=== PATIENT | male | born 1965 | race Caucasian/White ===

== ENCOUNTER 2021-06-30 18:25 | Emergency (ER) | payer BC, SELFPAY ==
[2021-06-30 18:32] VITALS: BP 148/79; PULSE 65; RESP 16; TEMP 36.8; O2SAT 99
--- NOTE | 2021-06-30 18:56 | ED.URI ---
HPI - URI/Sore Throat General Chief Complaint: Upper Respiratory Infection Stated Complaint: ear and throat pain Time Seen by Provider: 06/30/21 18:56 Source: patient Mode of arrival: ambulatory Limitations: no limitations History of Present Illness HPI Narrative: Ezequiel Olson is a 55 yo male with a PMH of HTN, diabetes, who comes to [facility] with complaints of right ear pain and sore throat x3 days Patient has had Covid vaccine Related Data Home Medications Medication Instructions Recorded Confirmed amlodipine 10 mg PO DAILY 06/30/21 06/30/21 carvedilol 25 mg PO BID 06/30/21 06/30/21 losartan 100 mg PO DAILY 06/30/21 06/30/21 metformin 500 mg PO BID 06/30/21 06/30/21 sildenafil 100 mg PO DAILY 06/30/21 06/30/21 Allergies Allergy/AdvReac Type Severity Reaction Status Date / Time Penicillins Allergy Unknown Rash Verified 06/30/21 18:29 Review of Systems Review of Systems: CONSTITUTIONAL: Denies fever, chills, sweats. EYES: Denies visual changes, redness, discharge. ENT: Denies rhinorrhea, congestion, has sore throat, right otalgia. CARDIOVASCULAR: Denies chest pain, palpitations, edema. RESPIRATORY: Denies dyspnea, wheezing, cough GASTROINTESTINAL: Denies abdominal pain, nausea, vomiting, diarrhea. GENITOURINARY: Denies dysuria, hematuria, abnormal discharge SKIN: Denies rash or itching. NEUROLOGIC: Denies numbness, or focal weakness. PSYCHIATRIC: Denies anxiety or depression. [facility] Past Medical History Medical History Diabetes HTN (hypertension) Hyperlipidemia Surgical History Surgical History (Updated 06/30/21 @ 18:59 by Anali Marcelo CNP) Previous back surgery Social History Social History (Updated 06/30/21 @ 18:59 by Anali Marcelo CNP) Smoking status: Never smoker Alcohol intake: current Comments At time of signature, I agree with nursing past medical, surgical, social and family history. There is no relevant family history pertinent to the presenting complaint. Exam Narrative: GENERAL: This is a well-nourished, well-developed patient, in mild distress. HEAD: normocephalic, atraumatic. EYES: PERRL. Sclera clear/white. Vision is grossly intact. EARS: External ears normal, auditory canals erythema and without drainage, with fluid behind TMs- no perforation. Hearing grossly intact. NOSE: External nose normal without nasal discharge, nares without redness, no rhinorrhea. THROAT: Mucous membranes moist, posterior pharynx erythematous NECK: Neck supple, right large lymph node, tender to touch CARDIOVASCULAR: Regular rate and rhythm without murmurs, gallops, or rubs. RESPIRATORY: Clear to auscultation. Breath sounds equal bilaterally. No wheezes, rales, or rhonchi. GASTROINTESTINAL: Abdomen soft, non-tender, SKIN: warm, intact with no suspicious lesions or rash, good texture and turgor. NEURO: awake, alert, and oriented to person, place and time. There were no obvious focal neurologic abnormalities. Steady gait EXTREMITIES: Normal range of motion. BACK: Nontender without deformity Course Course Emergency Course: Patient comes with cough and sore throat, right-sided lymph node enlargement Patient started on doxycycline 100 mg twice daily x7 days, Medrol Dosepak, Tessalon Perles Vital Signs Vital signs: Vital Signs Temperature 98.2 F 06/30/21 18:32 Pulse Rate 65 06/30/21 18:32 Respiratory Rate 16 06/30/21 18:32 Blood Pressure 148/79 H 06/30/21 18:32 Pulse Oximetry 99 06/30/21 18:32 Temperature 98.2 F 06/30/21 19:06 Pulse Rate 65 06/30/21 19:06 Respiratory Rate 16 06/30/21 19:06 Blood Pressure 148/79 H 06/30/21 19:06 Pulse Oximetry 99 06/30/21 19:06 MDM - URI/Sore Throat Differential Diagnosis Differential diagnosis: Likely upper respiratory infection, sinusitis, bronchitis, pharyngitis and other (Adenitis) Lab Data Labs: Strep Screen Presumptive Negative
[2021-06-30 19:06] VITALS: BP 148/79; PULSE 65; RESP 16; TEMP 36.8; O2SAT 99
== END 2021-06-30 19:17 | disposition home or self-care (01) ==
PROVIDERS: Emergency Provider Nurse Practitioner; PCP Family Medicine
DX: L04.9 Acute lymphadenitis, unspecified (principal); J02.9 Acute pharyngitis, unspecified; E11.9 Type 2 diabetes mellitus without complications; I10 Essential (primary) hypertension; E78.5 Hyperlipidemia, unspecified
CPT/HCPCS: 87081; 87880; 99203; G0463

== ENCOUNTER 2022-04-20 15:38 | Emergency (ER) | payer OTHER, SELFPAY ==
--- NOTE | ~2022-04-20 | CT_ITS ---
EXAMINATION: CT abdomen pelvis w con DATE: 04/20/2022 17:05 INDICATION: Low abdominal pain for 2 days after unloading intracranial TECHNIQUE: Computed tomography (CT) of the abdomen and pelvis was performed with 100 CC Omnipaque 300 intravenous contrast. Automated exposure control and iterative reconstruction technique were employe d. Exam dose: 985.87 mGy-cm total exam DLP. COMPARISON: 07/08/2013 limited abdominal ultrasound examination FINDINGS: Calcified granuloma, left lower lobe. No infiltrate or consolidation at the included lower lung zones. Heart size is within normal range. No pericardial or pleural effusion. There are numerous small stones in the dependent aspect of the gallbladder lumen. No gallbladder wall thickening or pericholecystic fluid or fat stranding. No bile duct or pancreatic duct dilatation. No common bile duct stone is identified. Surface nodularity of liver. Hepatic steatosis. No hepatic space-occupying mass lesion is detected. Malka newman spleen measures almost 14 cm length. Normal morphology of the adrenal glands. Approximately 3.2 x 5.7 mm nonobstructing upper pole right renal calculus. 9 x 11 mm lower pole right renal calculus with attenuation of 1037 Hounsfield units. Additional 3 mm nonobstructing lower pole right renal calculus. There is scarring and considerable asymmetric atrophy of the left kidney. 7 x 10.3 mm nonobstructing upper pole left renal calculus with attenuation of 1043 Hounsfield units. 4 mm nonobstructing lower pole left renal calculus. No ureteral calculus or hydroureteronephrosis on either side. Moderate prostate enlargement and occasional prostate calcification. Moderate diffuse thickening of malka newman urinary bladder wall, likely due to bladder outlet obstruction. Bilateral fat-containing inguinal hernias, small on the left, small to moderate on the right. Normal appendix. No bowel obstruction, bowel wall thickening, pneumatosis or intraperitoneal free air . Up to 3.8 cm wide 3.5 cm deep and 4.2 cm vertical dimension fat-containing umbilical hernia. Degenerative changes of the thoracic and lumbar spine including severe degenerative disc disease and mild retrolisthesis at L5-S1. No suspicious osteolytic or osteoblastic lesions are noted. IMPRESSION: 3.8 x 3.5 x 4.2 cm fat-containing umbilical hernia Bilateral fat-containing relatively small inguinal hernias Cholelithiasis Surface nodularity of the liver, hepatic steatosis splenomegaly, suggesting cirrhosis Bilateral nonobstructive nephrolithiasis Scarring and atrophy of the left kidney Moderate prostate enlargement Reviewed, dictated and finalized at [facility]. Reviewed, dictated and finalized at [facility]. IMPRESSION: 3.8 x 3.5 x 4.2 cm fat-containing umbilical hernia Bilateral fat-containing relatively small inguinal hernias Cholelithiasis Surface nodularity of the liver, hepatic steatosis splenomegaly, suggesting cir rhosis Bilateral nonobstructive nephrolithiasis Scarring and atrophy of the left kidney Moderate prostate enlargement
[2022-04-20 15:43] VITALS: BP 147/81; PULSE 101; RESP 16; TEMP 36.7; O2SAT 98
--- NOTE | 2022-04-20 15:49 | ED.ABDPAIN ---
HPI - Abdominal Pain General Chief Complaint: Abdominal Pain Stated Complaint: LOWER ABD PAIN X2D Time Seen by Provider: 04/20/22 15:46 History of Present Illness HPI narrative: The patient is a 56-year-old male with history of hypertension presenting to the emergency department for evaluation of umbilical abdominal pain. Patient states that he was helping to load a heavy trailer over the weekend when he was pulling on the hitch and had an acute onset of pain in his abdomen. Patient noticed today that he had bulging at his umbilicus, thus prompting a visit to an urgent care where the patient was sent here for evaluation of an umbilical hernia. Patient denies fever, chills, nausea or vomiting. He denies history of abdominal surgery. He denies constipation or diarrhea. Patient reports pain is mild, aching in nature at the umbilicus and in the lower abdomen. He denies significant abdominal distention. Related Data Home Medications Medication Instructions Recorded Confirmed amlodipine 10 mg tablet 10 mg PO DAILY 06/30/21 06/30/21 carvedilol 25 mg tablet 25 mg PO BID 06/30/21 06/30/21 losartan 100 mg tablet 100 mg PO DAILY 06/30/21 06/30/21 metformin 500 mg tablet 500 mg PO BID 06/30/21 06/30/21 sildenafil 100 mg tablet 100 mg PO DAILY 06/30/21 06/30/21 Allergies Allergy/AdvReac Type Severity Reaction Status Date / Time Penicillins Allergy Unknown Rash Verified 04/20/22 15:49 Review of Systems Review of Systems: CONSTITUTIONAL: Denies fever, chills, or sweats. CARDIOVASCULAR: Denies chest pain, palpitations, or edema. RESPIRATORY: Denies cough or dyspnea. GASTROINTESTINAL: Reports periumbilical abdominal pain, denies nausea, vomiting or diarrhea, denies constipation GENITOURINARY: Denies dysuria or hematuria. SKIN: Denies rash or itching. MUSCULOSKELETAL: Denies back pain, joint pain, or myalgia. NEUROLOGIC: Denies headache, numbness, or weakness. [facility] Past Medical History Medical History Diabetes HTN (hypertension) Hyperlipidemia Surgical History Surgical History Previous back surgery Social History Social History Smoking status: Never smoker Alcohol intake: current Exam Narrative: GENERAL: Awake, alert, conversant HEAD: Normocephalic, atraumatic. EYES: PERRLA and EOMI. ENT: Nares clear, no rhinorrhea or epistaxis. Mucous membranes moist. NECK: Supple. CHEST: No respiratory distress, breathing even and non labored HEART: Regular rate, sinus rhythm ABDOMEN: Protuberance, patient with umbilical hernia, nontender, no significant induration or ecchymosis, overlying tissue is soft when palpated no significant tenderness on exam EXTREMITIES: Normal range of motion. No edema. SKIN: Warm, dry, no rash. NEURO:No focal deficits. Alert and oriented x3 Course Vital Signs Vital signs: Vital Signs Temperature 36.7 C 04/20/22 15:43 Pulse Rate 101 H 04/20/22 15:43 Respiratory Rate 16 04/20/22 15:43 Blood Pressure 147/81 H 04/20/22 15:43 Pulse Oximetry 98 04/20/22 15:43 Oxygen Delivery Room Air 04/20/22 15:43 Temperature 36.7 C 04/20/22 15:43 Pulse Rate 101 H 04/20/22 15:43 Respiratory Rate 16 04/20/22 15:43 Blood Pressure 147/81 H 04/20/22 15:43 Pulse Oximetry 98 04/20/22 15:43 Oxygen Delivery Room Air 04/20/22 15:43 MDM - Abdominal Pain MDM Narrative Medical decision making narrative: Patient presenting for evaluation of umbilical hernia after heavy lifting, starting to stop a trailer from moving. At the time of assessment, ABCs are intact and vital signs are stable. Patient does not have any evidence of incarceration or strangulation based on physical exam, no real significant tenderness on exam. There is an umbilical hernia that is able to be reduced easily when the patient is lying flat. Patient hair
[2022-04-20 16:18] LABS: Basophils Percent Auto 0.4 % (0.2-1.2); Eosinophils Absolute Auto 0.3 K/mm3 (0-0.3); Hematocrit 42.8 % (42.0-52.0); Hemoglobin 14.8 g/dL (14.0-18.0); Immature Granulocyte Absolute 0.02 K/mm3 (0.00-0.031); Immature Granulocyte Percent A 0.3 % (0-0.5); Lymphocytes Absolute Auto 2.05 K/mm3 (0.9-3.2); Lymphocytes Percent Auto 29.1 % (18.3-44.2); Mean Corpuscular HGB Conc 34.6 g/dl (32-36); Mean Corpuscular Hemoglobin 31.5 pg (26-34); Mean Corpuscular Volume 91.1 fl (80-100); Mean Platelet Volume 9.6 fl (7.4-10.4); Monocytes Absolute Auto 0.5 K/mm3 (0.1-0.6); Monocytes Percent Auto 7.5 % (2.6-8.5); Neutrophils Absolute Auto 4.1 K/mm3 (1.3-6.7); Neutrophils Percent Auto 58.7 % (45.5-73.1); Platelet Count Result 187 k/mm3 (150-375); Red Cell Distribution Width 12.4 % (11.5-14.5); White Blood Count 7.1 K/mm3 (4.5-10.0)
[2022-04-20 16:27] LABS: Alanine Aminotransferase 35 U/L (6-50); Albumin Level 4.2 g/dL (3.5-5.1); Alkaline Phosphatase 146 U/L (38-126); Anion Gap 7 mmol/L (8-16); Aspartate Amino Transferase 42 U/L (17-59); Bilirubin,Total 0.5 mg/dL (0.2-1.3); Blood Urea Nitrogen 9 mg/dL (9-20); Calcium 9.3 mg/dL (8.4-10.2); Carbon Dioxide 27 mmol/L (22-30); Chloride 102 mmol/L (98-107); Estimated CRCL calculation 129 ml/min; Estimated Glomerular Filt Rate > 60; Glucose 319 mg/dL (65-110); Lactic Acid Reflex 1.3 mmol/L (0.7-2.0); Lipase 363 U/L (23-300); Potassium 4.1 mmol/L (3.4-5.0); Sodium 136 mmol/L (137-145)
[2022-04-20 16:58] LABS: Appearance Urine Clear (Clear); Bilirubin Urine Negative (Negative); Color Urine Yellow (Yellow); Glucose Urine UA 3+ mg/dL (Negative); Ketones Urine Negative (Negative); Leukocyte Esterase Ur Negative LEU/UL (Negative); Nitrate Urine Negative (Negative); Protein Urine Negative (Negative); Specific Grav Ur 1.015 (1.001-1.035); Urobilinogen Urine 0.2 mg/dL (<2.0); pH Urine 5.5 (5.0-9.0)
[2022-04-20 17:02] LABS: Bacteria Urine Trace /hpf; Mucus Urine Rare /lpf; RBC Urine 0-2 /hpf (0-2); WBC Urine 0-3 /hpf
[2022-04-20 17:03] LABS: Add Urine Microscopic? YES; Blood Urine Trace-Intact (Negative)
== END 2022-04-20 18:43 | disposition home or self-care (01) ==
PROVIDERS: Emergency Provider Emergency Medicine; PCP Family Medicine
DX: K42.9 Umbilical hernia without obstruction or gangrene (principal); E11.9 Type 2 diabetes mellitus without complications; Z79.84 Long term (current) use of oral hypoglycemic drugs; I10 Essential (primary) hypertension; E78.5 Hyperlipidemia, unspecified
CPT/HCPCS: 36415; 74177; 80053; 81001; 83605; 83690; 85025; 99284; Q9967

== ENCOUNTER 2022-05-27 08:02 | Outpatient (CLI) | payer OTHER, SELFPAY ==
[2022-05-27 08:52] LABS: Basophils Percent Auto 0.5 % (0.2-1.2); Eosinophils Absolute Auto 0.2 K/mm3 (0-0.3); Eosinophils Percent Auto 3.9 % (0-4.4); Hematocrit 42.4 % (42.0-52.0); Hemoglobin 14.3 g/dL (14.0-18.0); Immature Granulocyte Absolute 0.02 K/mm3 (0.00-0.031); Immature Granulocyte Percent A 0.3 % (0-0.5); Lymphocytes Absolute Auto 1.76 K/mm3 (0.9-3.2); Lymphocytes Percent Auto 29.5 % (18.3-44.2); Mean Corpuscular HGB Conc 33.7 g/dl (32-36); Mean Corpuscular Hemoglobin 31.3 pg (26-34); Mean Corpuscular Volume 92.8 fl (80-100); Mean Platelet Volume 9.5 fl (7.4-10.4); Monocytes Absolute Auto 0.6 K/mm3 (0.1-0.6); Monocytes Percent Auto 9.2 % (2.6-8.5); Neutrophils Absolute Auto 3.4 K/mm3 (1.3-6.7); Neutrophils Percent Auto 56.6 % (45.5-73.1); Platelet Count Result 160 k/mm3 (150-375); Red Blood Count 4.57 M/mm3 (4.6-6.20); Red Cell Distribution Width 12.5 % (11.5-14.5)
[2022-05-27 09:00] LABS: Anion Gap 10 mmol/L (8-16); Blood Urea Nitrogen 11 mg/dL (9-20); Calcium 9.1 mg/dL (8.4-10.2); Carbon Dioxide 27 mmol/L (22-30); Chloride 103 mmol/L (98-107); Estimated Glomerular Filt Rate > 60; Glucose 165 mg/dL (65-110); Potassium 3.9 mmol/L (3.4-5.0); Sodium 140 mmol/L (137-145)
== END 2022-05-27 08:03 | disposition home or self-care (01) ==
LOC: ANHSURGERY 08:08
PROVIDERS: PCP Family Medicine; Visit Provider Surgery
DX: K43.9 Ventral hernia without obstruction or gangrene (principal)
CPT/HCPCS: 36415; 80048; 85025

== ENCOUNTER 2022-06-01 01:48 | Day surgery (SDC) | payer OTHER, SELFPAY ==
--- NOTE | 2022-05-24 15:44 | PC.NURSE ---
Report to the Outpatient Waiting Room, entrance under the green pavilion located off [facility], at time 1030 on date _06/01/22___. OR Time: 1230. - You and your visitor will be asked to self-screen and do not enter if you have any COVID symptoms. - Only one visitor and NO children visitors are allowed at this time. - The patient visitor is requested to leave or wait in car when not with patient due to restrictions. - A mask is required within the hospital. Patients may have clear liquids (water, carbonated beverages, clear teas, apple juice) until 3 hours prior to surgery with a maximum of 20 ounces. - No food from midnight until time of surgery BEFORE 0930 - Infants may have breast milk until 4 hours before surgery, formula 6 hours prior to surgery. - Children will be allowed to drink immediately following surgery. If applicable, please bring a bottle or sippy cup to assist with drinking. Juice, water, soda, and popsicles are readily available. For infants on formula, please bring formula the day of surgery. Pacifiers are allowed. Take the following medications with a SIP of water the morning of surgery: ____AMLODIPINE AND CARVEDILOL Medications to discontinue per physician Date to take last dose Please no make-up, nail icelandic, hairspray, perfume, deodorant, or body powder the day of surgery. No jewelry (including any body piercings) or valuables the day of surgery, leave them at home. Please take a shower or bath the night before, or the morning of, surgery with an antibacterial soap. Wear comfortable, loose fitting clothing. Children are encouraged to wear pajamas. USE HIBICLENS DIRECTED ON THE MORNING OF SURGERY - Jewelry must be removed prior to entering the operating room. Rings and piercings that are not removed may be cut off. - The hospital will not accept responsibility for valuables. - Please leave all valuables, including medications, at home the day of surgery. If you are going home after surgery, a licensed line haul truck driver must drive you home. - NO public transportation without another adult. - We recommend that an adult stay with you for 24 hours following discharge. - We also recommend that you do not drive, make important decision, drink alcoholic beverages, or take any drugs that were not prescribed by your health care provider for at least 24 hours after your discharge time. For Pediatric surgeries, we recommend two adults accompany the child home (only one inside the building at this time). Follow any additional instructions given to you from your surgeon. If you or anyone in your household have experienced Covid symptoms in the past week, please notify your surgeon or the nurse liaison at the phone number below for possible testing. Telephone instructions given to _PATIENT__and asked if any additional questions and then verbalized understanding. Patient advised to call surgeon office or pre surgery nurse liaison [phone] if any additional questions.
[2022-05-25 16:10] VITALS: BMI 30.4
--- NOTE | 2022-06-01 08:44 | WPDHPUPDATE1 ---
History and Physical Update Update Date/Time: 06/01/22 08:44 History and Physical has been reviewed, including an updated exam of the patient. There are NO changes in the patient's condition. Risks, benefits, and alternatives have been discussed and questions answered. Patient agrees to proceed with procedure.
[2022-06-01 09:32] VITALS: BMI 30.8
[2022-06-01 09:35] VITALS: BP 134/81; PULSE 63; RESP 16; TEMP 36.7; O2SAT 98
--- NOTE | 2022-06-01 10:05 | SUR.PREOP ---
1005- COVID card not brought into hospital today but patient confirms he has received vaccinations.
[2022-06-01 10:12] LABS: Glucose Point of Care 157 mg/dl (65-105)
--- NOTE | 2022-06-01 10:51 | WPDANESEPPF ---
Anes - Initial Pre Proc Eval Procedure: Operation Date: 06/01/22 11:30 Proposed Procedures p Repair Periumbilical Ventral Hernia with Mesh - Bolivar Gardner MD Date/Time: 06/01/22 10:51 Surgeon: Bolivar Gardner MD Pre Op Diagnosis: ventral hernia Patient Data Age: 56 Gender: M Height: 1.83 m Weight: 101.8 kg Allergies Allergy/AdvReac Type Severity Reaction Status Date / Time Penicillins Allergy Unknown Unknown Verified 06/01/22 10:04 Home Medications Medication Instructions Recorded Confirmed Type amlodipine 10 mg tablet 10 mg PO DAILY 06/30/21 06/01/22 History carvedilol 25 mg tablet 25 mg PO BID 06/30/21 06/01/22 History losartan 100 mg tablet 100 mg PO DAILY 06/30/21 06/01/22 History metformin 500 mg tablet 500 mg PO BID 06/30/21 06/01/22 History ibuprofen 400 mg tablet 400 mg PO TID PRN fever or pain 10 04/20/22 05/24/22 Rx days #30 tabs cetirizine 10 mg tablet (Zyrtec) 10 mg PO DAILY 04/26/22 06/01/22 History Laboratory Tests 06/01/22 10:09 POC Capillary Glucose 157 mg/dl H mg/dl (65-105) Patient hx anesthesia problems: none Family hx anesthesia problems: none Results Review: All pre-operative results and documents have been reviewed as part of the pre-operative evaluation. [facility] Past Medical History Medical History (Updated 05/02/22 @ 10:19 by Angeline Delatorre) Diabetes HTN (hypertension) Hyperlipidemia Surgical History Surgical History History of neck surgery Previous back surgery Family History Family History Father Heart attack Hypertension Grandparent Heart attack Hypertension Social History Social History Social History: daily caffeine use, 3-4 sodas per day Smoking status: Never smoker Alcohol intake: current Alcohol use details: whiskey, beer Substance use: unknown Living arrangements: with family Additional living arrangements comments: patient is 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 Gender identity (if verbalized by the patient): Male Sexual Orientation (if Verbalized by the Patient): Straight or Heterosexual Anes - Eval Final PreProcedure Day of Procedure 06/01/22 10:51 Patient weight: obese Heart: regular rate and rhythm Lungs: clear to auscultation Airway: Mallampati scale class III Neurological: alert and oriented Last oral intake: >/= 8 hours ASA classification: III Emergent: no Anesthetic plan: proceed Anesthesia type and monitoring: general GIVS and standard monitoring Results Review: All pre-operative results and documents have been reviewed as part of the pre-operative evaluation. Informed Consent: The patient's anesthetic plan and its attendant risks and benefits were discussed with the patient/family/POA. Questions were solicited and answers provided to the satisfaction of the patient/family/POA.
[2022-06-01] MEDS: LACTATED RINGERS 1,000 ML 30 ML IV CONT ×2 (10:55→12:37)
[2022-06-01] MEDS: KETOROLAC 15 MG/ML VIAL (*BKC) IV PUSH (10:56)
[2022-06-01] MEDS: ACETAMINOPHEN 500 MG TABLET 1000 MG PO (10:56)
[2022-06-01] MEDS: ceFAZolin 2 GM/D5W 50 ML 2 GM/50 ML BAG IVPB (11:36)
[2022-06-01] MEDS: BUPIVACAINE/EPINEPHRINE 0.25% 50 ML VIAL 20 ML INFILTRATE (11:55)
[2022-06-01 12:37] VITALS: BP 127/82; PULSE 67; RESP 12; O2SAT 95
--- NOTE | 2022-06-01 12:49 | W.PM.PROC2 ---
Procedure Note - Detailed Date of Procedure 06/01/22 Pre-op Diagnosis ventral hernia Post-op Diagnosis Same Procedure Performed Repair ventral and umbilical hernia with 6.[address] underlay mesh Surgeon Bolivar Gardner MD Clip Loading Machine Feeder Janell SAENZ Anesthesia General (G IV S) and Local (0.25% bupivacaine with epinephrine) Indications Patient is a 56-year-old man who while unloading a trailer had a serious abdominal strain which resulted in a bulge just above his umbilicus and including the umbilicus. He was seen in the office and found to have a supra umbilical ventral hernia. He is taken to surgery now for repair with mesh. Findings Patient had a supraumbilical ventral hernia which was close to the umbilicus and actually a small umbilical hernia was present as well. The resultant defect was about 2 cm when the 2 hernias were joined. A 6.[address] underlay mesh was used to bolster the repair. Description of Procedure Patient was taken to surgery and anesthesia was introduced. I tried to reduce the hernia but was unable to completely reduce it. The proposed incision was marked around the upper aspect of the umbilicus. Local was infiltrated in the area of the anticipated incision. Incision was made and dissection through the skin and superficial subcutaneous was carried out. We then encountered the large hernia. The lower most aspect of the hernia included the umbilical skin. I dissected the hernia free of the subcutaneous and the umbilical skin. I dissected down to the fascia. I then infiltrated additional local into the neck of the hernia defect as well as the fascia. I used the cautery to divide the hernia sac at the fascia. When the sac was completely divided it was excised. There was a small additional hernia just caudal to this 1 that included the umbilicus. This hernia sac was excised as well. I divided the small fascial bridge between the 2 defects making 1 defect that was proximally 2 cm. I then reduced most of the chronically incarcerated omentum at the hernia. Some of the omentum I divided with the cautery and discarded. I was then able to place a finger in the abdominal cavity. I could not find any other hernia defects in the area. I chose a 6.[address] mesh. The mesh was placed in the defect and centered appropriately. Cranial and caudal transfascial sutures were then placed in such a fashion that, when tied, they would advance the edges of the defect towards 1 another, reducing the tension on the repair. 0 Ethibond sutures were used. Tying the sutures had the desired effect. I then cut the straps that were attached to the Ventralex ST mesh. Right and left lateral transfascial sutures of 0 Ethibond were then placed as well. Finally the defect was closed with [id number] mattress suture of 0 Ethibond. This stitch also incorporated a bit of mesh. The repair looked quite good. There was little or no tension on the repair. I infiltrated additional local around the outer aspect of the fascia where the repair had been performed. The 3-0 Vicryl was then used to suture the umbilical skin back to the fascia. Some additional 3-0 Vicryl subcutaneous sutures were placed. Some subcuticular 3-0 Vicryl and 4-0 Vicryl interrupted sutures were placed to approximate the skin. The skin was finally closed with a running 4-0 Monocryl skin suture. Wound was dressed with Exofin surgical adhesive. The patient was awakened and taken to recovery in good condition. Sponge and needle counts were correct x2. Implants 6.[address] mesh Estimated Blood Loss -5.0 Drains No Packing No Pathology None sent Complications No immediate complications Condition Stable Disposition Same day [facility] Billing Surgery - Charge Forward: Surgery Billing (Ventral hernia repair with mesh)
[2022-06-01 13:01] LABS: Glucose Point of Care 145 mg/dl (65-105)
[2022-06-01 13:05] VITALS: BP 141/86; PULSE 65; RESP 12; O2SAT 95
[2022-06-01 13:35] VITALS: BP 144/78; PULSE 71; RESP 12
== END 2022-06-01 13:44 | disposition home or self-care (01) ==
PROVIDERS: PCP Family Medicine; Visit Provider Surgery
PROC: (CPT 49560; principal; 2022-06-01 11:30)
DX: K43.9 Ventral hernia without obstruction or gangrene (principal); K42.9 Umbilical hernia without obstruction or gangrene; I10 Essential (primary) hypertension; E78.5 Hyperlipidemia, unspecified; E11.9 Type 2 diabetes mellitus without complications; Z79.84 Long term (current) use of oral hypoglycemic drugs; E66.9 Obesity, unspecified; Z68.30 Body mass index [BMI] 30.0-30.9, adult
CPT/HCPCS: 49560; 49568; 82948; A9270; C1781; J0690; J1100; J1170; J1885; J2250; J2405; J2704; J3010; J7120

== ENCOUNTER 2022-09-06 10:38 | Emergency (ER) | payer BC, SELFPAY ==
--- NOTE | 2022-09-06 10:45 | ED.URI ---
HPI - URI/Sore Throat General Chief Complaint: Upper Respiratory Infection Stated Complaint: cough, sore throat, headache, dizzy Time Seen by Provider: 09/06/22 10:45 Source: patient and RN notes reviewed History of Present Illness HPI Narrative: Patient is a 56-year-old male who presents to the Urgent Care with complaints of cough, sore throat, headache and fever. Patient states that started approximately 3-4 days ago and he has been using Tylenol. Patient had COVID a week and half ago. Denies any nausea or vomiting. No other acute complaints. No acute distress noted. Patient aware of the plan of care. . Some parts of this dictation were generated by voice recognition software and may contain typographical and/or grammatical inaccuracies. Related Data Home Medications Medication Instructions Recorded Confirmed amlodipine 10 mg tablet 10 mg PO DAILY 06/30/21 09/06/22 carvedilol 25 mg tablet 25 mg PO BID 06/30/21 09/06/22 losartan 100 mg tablet 100 mg PO DAILY 06/30/21 09/06/22 metformin 500 mg tablet 500 mg PO BID 06/30/21 09/06/22 cetirizine 10 mg tablet (Zyrtec) 10 mg PO DAILY 04/26/22 09/06/22 Allergies Allergy/AdvReac Type Severity Reaction Status Date / Time Penicillins Allergy Unknown Unknown Verified 07/07/22 09:51 Review of Systems Review of Systems: CONSTITUTIONAL: Reports of fever EYES: Denies visual changes, redness, or discharge. ENT: Reports of congestion, sore throat CARDIOVASCULAR: Denies chest pain, palpitations, or edema. RESPIRATORY: Reports of cough with chest tightness GASTROINTESTINAL: Denies abdominal pain, nausea, vomiting, or diarrhea. GENITOURINARY: Denies dysuria or hematuria. SKIN: Denies rash or itching. MUSCULOSKELETAL: Denies back pain, joint pain, or myalgia. NEUROLOGIC: Reports of headache All other systems reviewed are negative, except as documented in HPI. [facility] Past Medical History Medical History Diabetes HTN (hypertension) Hyperlipidemia Surgical History Surgical History History of neck surgery Previous back surgery S/P hernia repair Periumbilical hernia repair w/ mesh on 06/01/22. 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 There is no relevant family history pertinent to the patient complaint. Exam Narrative: GENERAL: This is a well-nourished, well-developed patient, in no apparent distress. HEAD: normocephalic, atraumatic. EYES: PERRL. Sclera clear/white. Vision is grossly intact. EARS: External ears normal, auditory canals clear and without drainage, TMs normal without perforation. Hearing grossly intact. NOSE: External nose normal with no obvious nasal discharge. Bilateral erythema nares with clear to yellow rhinorrhea THROAT: Mucous membranes moist, mild bilateral tonsillar edema with bilateral exudate and moderate postnasal drainage. NECK: Neck supple, non-tender without lymphadenopathy CARDIOVASCULAR: Regular rate and rhythm without murmurs, gallops, or rubs. RESPIRATORY: Audible wheezing with wet cough noted on exam. Lung sounds Clear to auscultation. Breath sounds equal bilaterally. No wheez
[2022-09-06 10:46] VITALS: BP 153/92; PULSE 82; RESP 23; TEMP 38.2; O2SAT 100
[2022-09-06] MEDS: IPRATROPIUM BR 0.02% INH SOLN 0.5 MG/2.5 ML VIAL INHALATION (10:55)
[2022-09-06] MEDS: ALBUTEROL SULFATE NEB 2.5 MG/3 ML INH INHALATION (10:55)
== END 2022-09-06 11:18 | disposition home or self-care (01) ==
PROVIDERS: Emergency Provider Nurse Practitioner Family; PCP Family Medicine
DX: J40 Bronchitis, not specified as acute or chronic (principal); E11.9 Type 2 diabetes mellitus without complications; I10 Essential (primary) hypertension; E78.5 Hyperlipidemia, unspecified; Z86.16 Personal history of COVID-19
CPT/HCPCS: 94640; 99213; G0463

== ENCOUNTER 2024-12-07 07:39 | Outpatient (CLI) | payer OTHER, SELFPAY ==
--- NOTE | ~2024-12-07 | XR_ITS ---
Lumbosacral Spine: AP, oblique, and lateral views Clinical History: Pain Findings: The normal lordotic curve is maintained. The vertebral bodies and posterior elements are i ntact. The there are minimal degenerative disc changes in the spine. There is advanced facet arthrop athy at L4-L5 and L5-S1. There is mild to moderate facet arthropathy in the upper lumbar spine. No in stability seen on flexion or extension. The sacroiliac joints are normally outlined. Suspected 9 mm l eft renal stone and 8 mm right renal stone. Impression: Moderate degenerative spondylosis. No instability evident. Probable bilateral nephrolithiasis, as above. Reviewed, dictated and finalized at location M. Impression: Moderate degenerative spondylosis. No instability evident. Probable bilateral nephrolithiasis, as above.
== END 2024-12-07 07:40 | disposition home or self-care (01) ==
LOC: MICIMG 07:43
PROVIDERS: PCP Anesthesiology; Visit Provider Anesthesiology
DX: M47.26 Other spondylosis with radiculopathy, lumbar region (principal)
CPT/HCPCS: 72114

== ENCOUNTER 2025-04-17 15:32 | Outpatient (CLI) | payer OTHER, SELFPAY ==
--- NOTE | ~2025-04-17 | XR_ITS ---
EXAM: XR elbow LT min 3V DATE: 04/17/2025 15:53 HISTORY: Pain in Left Elbow . COMPARISON: None available. FINDINGS: Normal mineralization. No fracture or dislocation. No lytic or blastic lesion. Mild degene rative change at the elbow joint. Mild enthesopathy of the biceps insertion and lateral epicondyle. N o erosion or periosteal change. Soft tissues within normal limits. IMPRESSION: No acute osseous finding in the left elbow. Reviewed, dictated and finalized at location K.
== END 2025-04-17 15:33 | disposition home or self-care (01) ==
PROVIDERS: PCP Nurse Practitioner Family; Visit Provider Nurse Practitioner Family
DX: M25.522 Pain in left elbow (principal)
CPT/HCPCS: 73080

== ENCOUNTER 2025-04-24 15:04 | Outpatient (CLI) | payer OTHER, SELFPAY ==
--- NOTE | ~2025-04-24 | XR_ITS ---
XR chest 2V 04/24/2025 15:34 Indication: Left-sided chest wall pain Procedure: 2 view chest Comparison: 08/22/2012 Findings: Heart size normal. Small pleural effusions. Left basilar airspace disease may represent atelectasis or pneumonia. No mitch ma or pneumothorax. No acute osseous abnormality. Impression: 1: Left basilar infiltrates may represent atelectasis or pneumonia. 2: Small pleural effusions. Reviewed, dictated and finalized at location A. Impression: 1: Left basilar infiltrates may represent atelectasis or pneumonia. 2: Small pleural effusions.
== END 2025-04-24 15:05 | disposition home or self-care (01) ==
PROVIDERS: PCP Nurse Practitioner Family; Visit Provider Nurse Practitioner Family
DX: R07.89 Other chest pain (principal); J90 Pleural effusion, not elsewhere classified; R91.8 Other nonspecific abnormal finding of lung field
CPT/HCPCS: 71046

== ENCOUNTER 2025-05-05 10:04 | Outpatient (CLI) | payer OTHER, SELFPAY ==
--- NOTE | ~2025-05-05 | XR_ITS ---
XR chest 2V 05/05/2025 10:55 Indication: Pneumonia Procedure: 2 view chest Comparison: 04/24/2025 Findings: Heart size normal. There is lingular infiltrates which may represent atelectasis or pneumon ia. No significant effusion, edema or pneumothorax. Impression: 1: Lingular infiltrates may represent atelectasis or pneumonia. Reviewed, dictated and finalized at location A. Impression: 1: Lingular infiltrates may represent atelectasis or pneumonia.
== END 2025-05-05 10:05 | disposition home or self-care (01) ==
PROVIDERS: PCP Nurse Practitioner Family; Visit Provider Nurse Practitioner Family
DX: J18.9 Pneumonia, unspecified organism (principal)
CPT/HCPCS: 71046

== ENCOUNTER 2025-05-16 13:00 | Outpatient (CLI) | payer OTHER, SELFPAY ==
--- NOTE | ~2025-05-16 | CT_ITS ---
CT Scan of the Chest without Contrast: Clinical Indication: Pneumonia Technique: Contiguous sections were acquired throughout the chest without intravenous contrast. Dose reduction technique was used on this scan by utilizing automated exposure control and iterative recon struction technique. The dose-length product (DLP) was 319.69 mGy-cm. Findings: There is no evidence of any significant mediastinal, hilar or axillary lymphadenopathy. Small calcifi ed gallstone is dilated as are present. Coronary artery calcifications are present. There is no evidence of pleural or pericardial effusion. The lungs are clear, aside from calcified left lower lobe granuloma. Images through the upper abdomen reveal diffusely nodular contour of liver. Multiple small calcified gallstones are present. Bilateral nonobstructing renal stones are present. Impression: No significant pulmonary abnormality. Cirrhotic liver. Cholelithiasis and bilateral nephrolithiasis. Reviewed, dictated and finalized at [facility]. Impression: No significant pulmonary abnormality. Cirrhotic liver. Cholelithiasis and bilateral nephrolithiasis.
--- OUTSIDE RECORDS SUMMARY | 2025-05-16 13:08 | XMS_ITS | Clinical Summary ---
Author Organization [facility] Address [address] [place] [address] Care Team Providers Care Rejogger Name Role Phone Unavailable Primary Care Provider Unavailabl e Source Comments [facility],non-owned Affiliates and Associated Physician Practices is amultiple site organization consisting of ambulatory clinics and hospital sitesin [place], [place], [place] and [place]. This disclosure is being madepursuant to the Care Everywhere program and may not contain all information available regarding this patient. Last updated 18.[facility] Allergies Active Allergy Reactions Criticality Noted Date Comments Penicillins Rash Medium 04/16/2025 Encounters Date Type Department Care Team Description 04/16/2025 11:56 PM CDT - 04/17/2025 12:38 AM CDT Emergency [facility] [address] [place] [address] Fall, initial encounter Discharge Disposition: Left Against Medical Advice/Discontinued Care 04/16/2025 Travel from Last 3 Months Social History Tobacco Use Types Packs/Day Years Used Date Smoking Tobacco: Never Smokeless Tobacco: Never Tobacco Cessation:Counseling Given: Not Answered Alcohol Use Standard Drinks/Week Comments Yes 0 (1 standard drink = 0.6 oz pur e alcohol) occ Sex and Gender Information Value Date Recorded Sex Assigned at Not on file Legal Sex Male 5:02 PM CDT Gender Identity Not on file Sexual Orientation Not on file Last Filed Vital Signs Vital Sign Reading Time Taken Comments Blood Pressure 120/89 04/16/2025 5:03 PM CDT Pulse 72 04/16/2025 5:03 PM CDT Temperature 36.6 C (97.8 F) 04/16/2025 5:03 PM CDT Respiratory Rate 17 04/16/2025 5:03 PM CDT Oxygen Saturation 97% 04/16/2025 5:03 PM CDT Inhaled Oxygen Concentration - - Weight - - Height - - Body Mass Index - - Plan of Treatment Health Maintenance Due Date Last Done Comments COLOGUARD (AGES 45-75) - COL ON CA SCREENING 1967 COLON MONITORING 1967 COLONOSCOPY - COLON CA SCREENING 1967 CT COLONOGRAPHY - COLON CA SCREENING 1967 Colorectal Cancer Screening 1967 FIT - COLON CA SCREENING 1967 FLEX SIG - COLON CA SCREENING 1967 LIPID TESTING 1967 HIV SCREENING 1982 HEPATITIS C SCREENING 09/14/1985 DTAP/TDAP/TD VACCINES (1 - Tdap) 1986 HEPATITIS B VACCINE (1 of 3 - 19+ 3-dose series) 1986 PNEUMOCOCCAL VACCINE 50+ (1 of 1 - PCV) 2017 ZOSTER VACCINE (1 of 2) 2017 COVID-19 VACCINE ( - 2023-2 5 season) 2024 DEPRESSION SCREENING 10/02/2024 INFLUENZA VACCINE (#1) 2025 HIB VACCINE Aged Out No longer eligi ble based on patient's age to complete this topic HPV VACCINE Aged Out No longer eligi ble based on patient's age to complete this topic MENINGOCOCCAL (Group B) VACC INE SHARED DECISION-MAKING Aged Out No longer eligibl e based on patient's age to complete this topic MENINGOCOCCAL GROUPS A/C/Y/W VACCINE Aged Out No longer eligible b ased on patient's age to complete this topic Procedures Procedure Name Priority Date/Time Associated Diagnosis Comments XR FOREARM LEFT 2VW OR MORE STAT 04/16/2025 7:52 PM CDT Fall, initial encounter XR CHEST 2VW STAT 04/16/2025 7:52 PM CDT Fall, initial encounter CT CERVICAL SPINE WO CONTRAST STAT 04/16/2025 5:44 PM CDT Fall, initial encounter CT HEAD WO CONTRAST STAT 04/16/2025 5 :44 PM CDT Fall, initial encounter from Last 3 Months Results * XR FOREARM LEFT 2VW (04/16/2025 7:52 PM CDT) Anatomical Region Laterality Modality Upper Extremity Digital Radiogra phy 04/16/2025 9:35 PM CDT Impressions 04/17/2025 4:00 AM CDT IMPRESSION: No acute radial or ulnar fracture identified. Report dictated by Samir Hedrick MD, (academic vice president). Edgard Dan MD have personally reviewed and interpreted this examination/study. > Interpreting Provider: Edgard Avelar MD on 04/17/2025 4:00 AM Narrative 04/17/2025 4:00 AM CDT PROCEDURE: XR FOREARM LEFT 2VW OR MORE, DATE/TIME OF EXAM: 04/16/2025 8:44 PM, LOCATION [facility] INDICATION: W19.XXXA: Fall, initial encounter ADDITIONAL CLINICAL INFORMATION: Ordering Provider Reason For Exam: r/o fracture Technologist Note: Additional: COMPARISON: None. FINDINGS: Nonstandard positioning. The radius and ulna are intact without evidence of acute fracture. Bone density and texture are normal. No soft tissue swelling is present. No large joint effusion. Procedure Note Edgard Avelar MD - 04/17/2025 PROCEDURE: XR FOREARM LEFT 2VW OR MORE, DATE/TIME OF EXAM: 58:44 PM, LOCATION [facility] INDICATION: W19.XXXA: Fall, initial encounter ADDITIONAL CLINICAL INFORMATION: Ordering Provider Reason For Exam: r/o fracture Technologist Note: Additional: COMPARISON: None. FINDINGS: Nonstandard positioning. The radius and ulna are intact without evidence of acute fracture. Bone density and texture are normal. No soft tissue swelling is present. No large joint effusion. IMPRESSION: No acute radial or ulnar fracture identified. Report dictated by Samir Hedrick MD, (academic vice president). Edgard Dan MD have personally reviewed and interpreted this examination/study. > Interpreting Provider: Edgard Avelar MD on 04/17/2025 4:00 AM Delma Monroe [employer]AY GUN OPERATOR-SUPPLY CHAIN BUSINESS ANALYST DIAGNOSTIC IMAGING OR DERABLES Final Result * XR CHEST 2VW (04/16/2025 7:52 PM CDT) Anatomical Region Laterality Modality Chest Digital Radiogra phy 04/16/2025 9:30 PM CDT Narrative 04/17/2025 3:56 AM CDT PROCEDURE: XR CHEST 2VW, DATE/TIME OF EXAM: 04/16/2025 8:44 PM, LOCATION [facility] INDICATION: W19.XXXA: Fall, initial encounter ADDITIONAL CLINICAL INFORMATION: Ordering Provider Reason For Exam: r/o fracture COMPARISON: None. TECHNIQUE: Frontal and lateral radiograph of the chest. FINDINGS/IMPRESSION: *Partially visualized cervical spinal hardware Acute displaced fractures of the left fourth fifth and sixth ribs. There is no focal consolidation, pleural effusion, or pneumothorax. The cardiac silhouette is enlarged. The mediastinal silhouette is normal. Degenerative changes are noted in the thoracic spine. Report dictated by Samir Hedrick MD, (Cutter Hand). Edgard Dan MD have personally reviewed and interpreted this examination/study. > Interpreting Provider: Edgard Avelar MD on 04/17/2025 3:56 AM Procedure Note Edgard Avelar MD - 04/17/2025 PROCEDURE: XR CHEST 2VW, DATE/TIME OF EXAM: 04/16/2025 8:44 PM, LOCATION [facility] INDICATION: W19.XXXA: Fall, initial encounter ADDITIONAL CLINICAL INFORMATION: Ordering Provider Reason For Exam: r/o fracture COMPARISON: None. TECHNIQUE: Frontal and lateral radiograph of the chest. FINDINGS/IMPRESSION: *Partially visualized cervical spinal hardware Acute displaced fractures of the left fourth fifth and sixth ribs. There is no focal consolidation, pleural effusion, or pneumothorax. The cardiac silhouette is enlarged. The mediastinal silhouette is normal. Degenerative changes are noted in the thoracic spine. Report dictated by Samir Hedrick MD, (Cutter Hand). Edgard Dan MD have personally reviewed and interpreted this examination/study. > Interpreting Provider: Edgard Avelar MD on 04/17/2025 3:56 AM Delma Monroe SPRAY GUN OPERATOR-SUPPLY CHAIN BUSINESS ANALYST DIAGNOSTIC IMAGING OR DERABLES Final Result * CT Cervical Spine WO Contrast ??? Spine fx, traumatic, cervical (04/16/2025 5:44 PM CDT) Anatomical Region Laterality Modality Spine Computed Tomogra phy 04/16/2025 5:58 PM CDT Impressions 04/16/2025 7:14 PM CDT IMPRESSION: 1.No acute intracranial hemorrhage, midline shift, or significant mass effect. 2.No evidence of acute fracture in the cervical spine. > Dictated by Samir Hedrick MD, (academic vice president). IZev MD have personally reviewed and interpreted this examination/study. > Interpreting Provider: Zev Boogie MD on 04/16/2025 7:14 PM Narrative 04/16/2025 7:14 PM CDT PROCEDURE: CT HEAD WO CONTRAST, CT CERVICAL SPINE WO CONTRAST, DATE/TIME OF EXAM: 04/16/2025 5:44 PM, LOCATION [facility] INDICATION: W19.XXXA: Fall, initial encounter EXAMINATION: 1.Computed tomography (CT) of the head without contrast 2.CT of the cervical spine without contrast ADDITIONAL CLINICAL INFORMATION: Ordering Provider Reason For Exam: R/O ICH (accession [id number]), r/o fracture (accession [id number]) Technologist Note: None. Additional: None. TECHNIQUE: CT of the head and cervical spine was performed without contrast according to standard protocol. CT dose reduction technique was used, including Automated Exposure Control. COMPARISON: No prior study is available for comparison at the time of this dictation. FINDINGS: Head: No acute intra- or extra-axial fluid collections are identified. The ventricles are nondilated. The basilar cisterns are patent. No mass effect or midline shift is seen. The mix-white matter differentiation is normal. Periventricular white matter hypoattenuation is indicative of chronic small vessel ischemic disease. There is vascular calcification of the carotid siphons. No acute calvarial fracture is identified. The orbits appear normal. There is a mucous retention cyst in the right maxillary sinus. There is atelectasis of the right maxillary sinus. There is mild mucosal thickening in the remaining paranasal sinuses. Extensive periodontal disease is partially imaged. The mastoid air cells are clear. No soft tissue abnormality is identified. Cervical spine: There are postoperative findings of ACDF at C4-C6. The hardware appears grossly intact. There is straightening of the cervical lordosis. Very shallow levocurvature of the cervical spine. The alignment is otherwise maintained. Vertebral bodies are normal in height without evidence of acute fracture. Other than middle atlantoaxial joint osteoarthritis, the craniocervical junction appears normal. There is prominent calcifications along the dorsal upper aspect of C3 extending superiorly to the level of the inferior aspect of C2, compatible with focal posterior longitudinal calcification/posterior spurring. This results in moderate compression on the ventral aspect of thecal sac and moderate spinal canal stenosis. There is advanced degenerative disc disease. Hmex-mp-kruuuyah multilevel central canal stenosis is seen. There are varying degrees of advanced facet osteoarthritis. There are varying degrees of advanced uncovertebral joint osteoarthritis with the same degree of neural foraminal stenosis at these levels. There are multiple small cervical lymph nodes which are nonspecific. There is atherosclerotic calcification of the carotid bifurcations. Brain injury guidelines: Skull fracture: No Subdural hematoma: No subdural hematoma. Epidural hematoma: No epidural hematoma. Intraparenchymal hemorrhage: No intraparenchymal hemorrhage. Subarachnoid hemorrhage: No subarachnoid hemorrhage. Intraventricular hemorrhage: No. Midline shift: No. Procedure Note Zev Boogie MD - 04/16/2025 PROCEDURE: CT HEAD WO CONTRAST, CT CERVICAL SPINE WO CONTRAST,DATE/TIME OF EXAM: 04/16/2025 5:44 PM, LOCATION [facility] INDICATION: W19.XXXA: Fall, initial encounter EXAMINATION: 1.Computed tomography (CT) of the head without contrast 2.CT of the cervical spine without contrast ADDITIONAL CLINICAL INFORMATION: Ordering Provider Reason For Exam: R/O ICH (accession [id number]), r/o fracture (accession [id number]) Technologist Note: None. Additional: None. TECHNIQUE: CT of the head and cervical spine was performed withoutcontrast according to standard protocol. CT dose reduction technique was used, including Automated Exposure Control. COMPARISON: No prior study is available for comparison at the time ofthis dictation. FINDINGS: Head: No acute intra- or extra-axial fluid collections are identified. The ventricles are nondilated. The basilar cisterns are patent. No masseffect or midline shift is seen. The mix-white matter differentiation isnormal. Periventricular white matter hypoattenuation is indicative of chronicsmall vessel ischemic disease. There is vascular calcification of the carotid siphons. No acute calvarial fracture is identified. The orbits appear normal. There is a mucous retention cyst in the right maxillary sinus. There is atelectasis of the right maxillary sinus. There is mild mucosal thickening in the remaining paranasal sinuses. Extensive periodontal disease is partially imaged. The mastoid air cells are clear. No soft tissue abnormality is identified. Cervical spine: There are postoperative findings of ACDF at C4-C6. The hardware appears grossly intact. There is straightening of the cervical lordosis. Very shallowlevocurvature of the cervical spine. The alignment is otherwise maintained. Vertebral bodies are normal in height without evidence of acute fracture. Otherthan middle atlantoaxial joint osteoarthritis, the craniocervical junction appears normal. There is prominent calcifications along the dorsal upper aspect of C3 extending superiorly to the level of the inferior aspect of C2, compatible with focal posterior longitudinal calcification/posterior spurring. This results in moderate compression on the ventral aspect of thecal sac and moderate spinal canal stenosis. There is advanced degenerative disc disease. Jrnt-sw-olusbjgk multilevel central canal stenosis is seen. There are varying degrees of advanced facet osteoarthritis. There are varying degrees of advanced uncovertebraljoint osteoarthritis with the same degree of neural foraminal stenosis atthese levels. There are multiple small cervical lymph nodes which are nonspecific. There is atherosclerotic calcification of the carotid bifurcations. Brain injury guidelines: Skull fracture: No Subdural hematoma: No subdural hematoma. Epidural hematoma: No epidural hematoma. Intraparenchymal hemorrhage: No intraparenchymal hemorrhage. Subarachnoid hemorrhage: No subarachnoid hemorrhage. Intraventricular hemorrhage: No. Midline shift: No. IMPRESSION: 1.No acute intracranial hemorrhage, midline shift, or significant mass effect. 2.No evidence of acute fracture in the cervical spine. > Dictated by Samir Hedrick MD, (academic vice president). IZev MD have personally reviewed and interpretedthis examination/study. > Interpreting Provider: Zev Boogie MD on 04/16/2025 7:14 PM Delma Monroe SPRAY GUN OPERATOR-SUPPLY CHAIN BUSINESS ANALYST CT ORDERABLES Final Result * CT HEAD WO CONTRAST ??? Intracranial hemorrhage (04/16/2025 5:44 PM CDT) Anatomical Region Laterality Modality Head Computed Tomogra phy 04/16/2025 5:58 PM CDT Impressions 04/16/2025 7:14 PM CDT IMPRESSION: 1.No acute intracranial hemorrhage, midline shift, or significant mass effect. 2.No evidence of acute fracture in the cervical spine. > Dictated by Samir Hedrick MD, (academic vice president). Zev Dan MD have personally reviewed and interpreted this examination/study. > Interpreting Provider: Zev Boogie MD on 04/16/2025 7:14 PM Narrative 04/16/2025 7:14 PM CDT PROCEDURE: CT HEAD WO CONTRAST, CT CERVICAL SPINE WO CONTRAST, DATE/TIME OF EXAM: 04/16/2025 5:44 PM, LOCATION [facility] INDICATION: W19.XXXA: Fall, initial encounter EXAMINATION: 1.Computed tomography (CT) of the head without contrast 2.CT of the cervical spine without contrast ADDITIONAL CLINICAL INFORMATION: Ordering Provider Reason For Exam: R/O ICH (accession [id number]), r/o fracture (accession [id number]) Technologist Note: None. Additional: None. TECHNIQUE: CT of the head and cervical spine was performed without contrast according to standard protocol. CT dose reduction technique was used, including Automated Exposure Control. COMPARISON: No prior study is available for comparison at the time of this dictation. FINDINGS: Head: No acute intra- or extra-axial fluid collections are identified. The ventricles are nondilated. The basilar cisterns are patent. No mass effect or midline shift is seen. The mix-white matter differentiation is normal. Periventricular white matter hypoattenuation is indicative of chronic small vessel ischemic disease. There is vascular calcification of the carotid siphons. No acute calvarial fracture is identified. The orbits appear normal. There is a mucous retention cyst in the right maxillary sinus. There is atelectasis of the right maxillary sinus. There is mild mucosal thickening in the remaining paranasal sinuses. Extensive periodontal disease is partially imaged. The mastoid air cells are clear. No soft tissue abnormality is identified. Cervical spine: There are postoperative findings of ACDF at C4-C6. The hardware appears grossly intact. There is straightening of the cervical lordosis. Very shallow levocurvature of the cervical spine. The alignment is otherwise maintained. Vertebral bodies are normal in height without evidence of acute fracture. Other than middle atlantoaxial joint osteoarthritis, the craniocervical junction appears normal. There is prominent calcifications along the dorsal upper aspect of C3 extending superiorly to the level of the inferior aspect of C2, compatible with focal posterior longitudinal calcification/posterior spurring. This results in moderate compression on the ventral aspect of thecal sac and moderate spinal canal stenosis. There is advanced degenerative disc disease. Rinv-xu-vxlopslc multilevel central canal stenosis is seen. There are varying degrees of advanced facet osteoarthritis. There are varying degrees of advanced uncovertebral joint osteoarthritis with the same degree of neural foraminal stenosis at these levels. There are multiple small cervical lymph nodes which are nonspecific. There is atherosclerotic calcification of the carotid bifurcations. Brain injury guidelines: Skull fracture: No Subdural hematoma: No subdural hematoma. Epidural hematoma: No epidural hematoma. Intraparenchymal hemorrhage: No intraparenchymal hemorrhage. Subarachnoid hemorrhage: No subarachnoid hemorrhage. Intraventricular hemorrhage: No. Midline shift: No. Procedure Note Zev Boogie MD - 04/16/2025 PROCEDURE: CT HEAD WO CONTRAST, CT CERVICAL SPINE WO CONTRAST,DATE/TIME OF EXAM: 04/16/2025 5:44 PM, LOCATION [facility] INDICATION: W19.XXXA: Fall, initial encounter EXAMINATION: 1.Computed tomography (CT) of the head without contrast 2.CT of the cervical spine without contrast ADDITIONAL CLINICAL INFORMATION: Ordering Provider Reason For Exam: R/O ICH (accession [id number]), r/o fracture (accession [id number]) Technologist Note: None. Additional: None. TECHNIQUE: CT of the head and cervical spine was performed withoutcontrast according to standard protocol. CT dose reduction technique was used, including Automated Exposure Control. COMPARISON: No prior study is available for comparison at the time ofthis dictation. FINDINGS: Head: No acute intra- or extra-axial fluid collections are identified. The ventricles are nondilated. The basilar cisterns are patent. No masseffect or midline shift is seen. The mix-white matter differentiation isnormal. Periventricular white matter hypoattenuation is indicative of chronicsmall vessel ischemic disease. There is vascular calcification of the carotid siphons. No acute calvarial fracture is identified. The orbits appear normal. There is a mucous retention cyst in the right maxillary sinus. There is atelectasis of the right maxillary sinus. There is mild mucosal thickening in the remaining paranasal sinuses. Extensive periodontal disease is partially imaged. The mastoid air cells are clear. No soft tissue abnormality is identified. Cervical spine: There are postoperative findings of ACDF at C4-C6. The hardware appears grossly intact. There is straightening of the cervical lordosis. Very shallowlevocurvature of the cervical spine. The alignment is otherwise maintained. Vertebral bodies are normal in height without evidence of acute fracture. Otherthan middle atlantoaxial joint osteoarthritis, the craniocervical junction appears normal. There is prominent calcifications along the dorsal upper aspect of C3 extending superiorly to the level of the inferior aspect of C2, compatible with focal posterior longitudinal calcification/posterior spurring. This results in moderate compression on the ventral aspect of thecal sac and moderate spinal canal stenosis. There is advanced degenerative disc disease. Hucz-xw-pvqvgkhw multilevel central canal stenosis is seen. There are varying degrees of advanced facet osteoarthritis. There are varying degrees of advanced uncovertebraljoint osteoarthritis with the same degree of neural foraminal stenosis atthese levels. There are multiple small cervical lymph nodes which are nonspecific. There is atherosclerotic calcification of the carotid bifurcations. Brain injury guidelines: Skull fracture: No Subdural hematoma: No subdural hematoma. Epidural hematoma: No epidural hematoma. Intraparenchymal hemorrhage: No intraparenchymal hemorrhage. Subarachnoid hemorrhage: No subarachnoid hemorrhage. Intraventricular hemorrhage: No. Midline shift: No. IMPRESSION: 1.No acute intracranial hemorrhage, midline shift, or significant mass effect. 2.No evidence of acute fracture in the cervical spine. > Dictated by Samir Hedrick MD, (academic vice president). I, Zev Boogie MD have personally reviewed and interpretedthis examination/study. > Interpreting Provider: Zev Boogie MD on 04/16/2025 7:14 PM Delma Monroe [employer]AY GUN OPERATOR-SUPPLY CHAIN BUSINESS ANALYST CT ORDERABLES Final Result from Last 3 Months Insurance [facility] Member Subscriber Plan / Payer (Ef fective 2023-Present) Name:Ezequiel gan Member ID:Not on file Relation to Subscriber:Self Name:Ezequiel zarate Payer ID:[id number] (NAIC) Type:HMO Address: [place] [phone]
--- OUTSIDE RECORDS SUMMARY | 2025-05-16 13:08 | XMS_ITS | Clinical Summary ---
Author Organization [place] [address] [address] [facility] [place] [address] Care Team Providers Care Electrician Journeyman Wireman Name Role Phone Aida Shelton MD Primary Care Provider + Allergies Active Allergy Reactions Criticality Noted Date Comments Penicillins Unknown 11/20/2023 Medications amLODIPine (NORVASC) 10 mg tablet Take 1 tablet (10 mg total) by mouth daily 08/14/2023 Active carvediloL (COREG) 25 mg tablet Take 1 tablet (25 mg total) by mouth 2 (two) times a day 08/14/2023 Active glipiZIDE XL (GLUCOTROL XL) 10 mg 24 hr tablet Take 2 tablets (20 mg total) by mouth daily 11/06/2023 Active sildenafiL (VIAGRA) 100 mg tablet TAKE 1 TABLET BY MOUTH ONCE DAILY NEEDED . TAKE 30 MINUTES BEFORE SEXUAL INTERCOURSE. DO NOT EXCEED 1 TABLET IN 24 HOURS. 10/12/2023 Active benzonatate (TESSALON) 200 mg capsuleIndicati ons:Acute cough Take 1 capsule (200 mg total) by mouth 3 (three) times a day as needed for cough 30 capsule 03/30/2025 Active lidocaine viscous (XYLOCAINE) 2 % solutionIndicat ions:Sore throat Apply 10 mL to the mouth or throat every 6 (six) hours as needed (sore throat) 100 mL 03/30/2025 Active Active Problems Problem Noted Date Diagnosed Date Abnormal liver function tests 12/09/2013 Abdominal pain 12/09/2013 Encounters Date Type Department Care Team Description 03/30/2025 10:00 AM CDT Office Visit [facility] [address] [address] Tammy Hwang NP Acute cough (Primary Dx); Acute non-recurrent maxillary sinusitis; Sore throat from Last 3 Months Surgical History Surgery Date Site/Laterality Comments BACK SURGERY Lower Back Surgery - (Added by Conv) NECK SURGERY Neck Surgery - (Added by Conv) TX SIGMOIDOSCOPY FLX DX W/CO LLJ SPEC BR/WA IF PFRMD Fiberoptic Examinations Sigmoidoscopy - (Added by Conv) Medical History Medical History Date Comments Personal history of other di seases of the circulatory system History of hypertension - (A dded by ) Personal history of other en docrine, nutritional and metabolic disease Personal history of gout - (Added by Conv) Hyperlipidemia Dyslipidemia - ( Added by Conv) Personal history of other di seases of the nervous system and sense organs History of sleep apnea - (Added by Conv) Personal history of other en docrine, nutritional and metabolic disease History of diabetes mellitus - (Added by Conv) Personal history of other di seases of the digestive system History of irritable bowel s yndrome - (Added by Conv) Family History Medical History Relation Name Comments COPD Father Family history of chronic obstructive pulmonary disease - (Added by Conv) Heart attack Father Family history of myocardial infarction - (Added by Conv) Heart failure Father Family history of heart failure - (Added by TW Conv) Heart attack Father's Brother Family hist ory of myocardial infarction - (Added by TW Conv) Breast cancer Mother Family history of malignant neoplasm of breast - (Added by TW Conv) Cancer Mother Family history of malignant neoplasm - (Added by TW Conv) Heart attack Paternal Grandfather Family history of myocardial infarction - (Added by TW Conv) Relation Name Status Comments Father Father's Brother Mother Paternal Grandfather Social History Tobacco Use Types Packs/Day Years Used Date Smoking Tobacco: Never Sex and Gender Information Value Date Recorded Sex Assigned at Not on file Legal 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 Gender Identity Not on file Sexual Orientation Not on file Obstetrics History Last Filed Vital Signs Vital Sign Reading Time Taken Comments Blood Pressure 168/100 03/30/2025 9:58 AM CDT Pulse 76 03/30/2025 9:58 AM CDT Temperature 36.9 C (98.5 F) 03/30/2025 9:58 AM CDT Respiratory Rate 20 03/30/2025 9:58 AM CDT Oxygen Saturation 98% 03/30/2025 9:58 AM CDT Inhaled Oxygen Concentration - - Weight 102.1 kg (225 lb 1.6 oz) 03/30/2025 9:58 AM CDT Height 185.4 cm (6' 1) 03/30/2025 9:58 AM CDT Body Mass Index 29.7 03/30/2025 9:58 AM CDT Plan of Treatment Health Maintenance Due Date Last Done Comments Colon Cancer Screening-Colonoscopy 1967 Depression Screening 1967 Hepatitis C Screening 1967 Prostate Cancer Screening-PSA 1967 DTaP/Tdap/Td Vaccine (1 - Tdap) 1978 Hepatitis B Screening 1985 Regular Well Visit/Exam 18-64 1985 Zoster Vaccine (1 of 2) 2017 Covid-19 Vaccine (4 - 2023-2 5 season) 2024 09/11/2021, 12/20/2020, 11/28/2020 Influenza Vaccine (#1) 2025 5, 08/02/2014 Pneumococcal vaccine <65 Aged Out No longer eligible based on patient's age to complete this topic Insurance [facility] Care Teams Electrician Journeyman Wireman Relationship Specialty Start Date End Date Aida Shelton MD [address] [place] [address] [address] [place] [address] [place] [id number] PCP - General Family Medicine 05/08/24
--- OUTSIDE RECORDS SUMMARY | 2025-05-16 13:08 | XMS_ITS ---
Author Organization [facility] Address [address] [place] [address] [place] [address] Care Team Providers Care Robotic Maintenance Technician Name Role Phone [facility] Primary Care Provider Unavaila danis Bestchristianmaryjean carlosBarry Unavailable [phone] ALLERGIES Allergen (clinical drug ingredient) Drug/Non Drug Allergy documented on EMR Reaction Allergy Type Onset Date Status Penicillin Unknown Drug Allergy Active REASON FOR VISIT New Patient Visit, Right Low Back Pain, Right Lower Extremity Pain MEDICATIONS Medication SIG (Take, Route, Frequency, Duration) Notes Start Date End Date Status Sildenafil Citrate 100 MG 1 tablet Oral Once a day F5221,Unavail able Active Carvedilol 25 MG TAKE 1 TABLET BY MOUTH TWICE DAILY Oral for 90 I10,Unavailab le Active amLODIPine Besylate 10 MG TAKE 1 TABLET BY MOUTH ONCE DAILY Oral for 30 Active Losartan Potassium 100 MG TAKE 1 TABLET BY MOUTH ONCE DAILY Oral for 90 Active methylPREDNISolone 4 MG as directed Orally Active glipiZIDE ER 10 MG TAKE 2 TABLETS BY MOUTH ONCE DAILY Oral for 30 Active SOCIAL HISTORY Tobacco Use: Social History Observation Description Date Details (start date - stop date) Never Smoker NA - NA Sex Assigned At : Social History Observation Description Sex Assigned At Unknown Tobacco Use/Smoking Question Answer Notes Are you a nonsmoker Section Notes: 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 He is with one child. The patient denies tobacco, alcohol, or illicit drug abuse. PROBLEMS Problem Type ICD Code Onset Dates Problem Status W/U Status Risk SNOMED Code Notes Problem Lumbar radiculopathy (M54.16) Active confirmed Lumbar radiculopathy (773067806) Problem Radiculopathy, lumbosacral region (M54.17) Active confirmed Lumbosacral radiculopathy (9583594) Problem Postlaminectomy syndrome, not elsewhere classified (M96.1) Active confirmed Post-lami nectomy syndrome (09120582) Problem Chronic pain syndrome (G89.4) Active confirmed Chronic sabiha n syndrome (969583836) Problem Intervertebral disc disorders with radiculopathy, lumbar region (M51.16) Active confirmed Radiculopathy d ue to lumbar intervertebral disc disorder (539185926121953) Problem Sacroiliitis, not elsewhere classified (M46.1) Active confirmed Solitary sacroiliitis (663422734) Problem manager long term care (current) use of non-steroidal anti-inflammatorie s (NSAID) (Z79.1) Active confirmed [facility] current use of non-steroidal anti-inflammatory drug (052484993077356) VITAL SIGNS Blood pressure systolic 189 mm Hg 11/28/19 25 Blood pressure diastolic 109 mm Hg 025 Heart Rate 65 /min 11/28/2024 Respiratory Rate 18 /min 11/28/2024 Height 6 ft 1 in in 11/28/2024 Weight 230 lbs 11/28/2024 BMI 30.34 kg/m2 11/28/2024 Encounters Encounter Location Date Provider Diagnosis [facility] [address] [place] [address] [place] [address] 11/28/2024 Barry Gale Lumbar radiculopathy M54.16 ; Radiculopathy, lumbosacral region M54.17 ; Intervertebral disc disorders with radiculopathy, lumbar region M51.16 ; Sacroiliitis, not elsewhere classified M46.1 ; Postlaminectomy syndrome, not elsewhere classified M96.1 ; Chronic pain syndrome G89.4 and [facility] (current) use of non-steroidal anti-inflammatories (NSAID) Z79.1 ASSESSMENTS Encounter Date Diagnosis Assessment Notes Treatment Notes Treatment Clinical Notes Section Notes 11/28/2024 Lumbar radiculopathy (ICD-10 - M54.16) I made the patient aware of his significant strength deficit in the right lower extremity. I emphasized that this is very concerning for a recurrent disc herniation. The patient's intermittent foot drop is also concerning. Given the patient's neurologic deficit an MRI lumbar spine is absolutely medically necessary. I also made the patient aware that he is potentially at risk for a permanent and progressive neurologic deficit without surgical decompression and he expressed an understanding of the above. The patient would like to try injection therapy prior to visiting with a neurosurgeon and he is willing to accept the above risks. Schedule a right L4-5 + L5-S1 (versus other level depending upon MRI results) transforaminal epidural steroid injection. The risks of this procedure including pain, bleeding, infection, spinal headache, persistent spinal fluid leak, epidural hematoma, nerve damage, spinal cord injury, paralysis, total spinal anesthesia resulting in cardiopulmonary arrest/, respiratory distress requiring intubation, insomnia, hyperglycemia, hair loss, muscle atrophy, skin depigmentation, weight gain, fluid retention, adrenal suppression, immunosuppression, osteoporosis resulting in fractures, avascular necrosis of the hip, cataracts, bleeding gastric ulcer, worsening pain and failure to relieve pain were discussed and the patient is agreeable to proceeding at this time. 11/28/2024 Radiculopathy, lumbosacral region (ICD-10 - M54.17) 11/28/2024 Intervertebral disc disorders with radiculopathy, lumbar region (ICD-10 - M51.16) 11/28/2024 Sacroiliitis, not elsewhere classified (ICD-10 - M46.1) If the patient's lumbosacral and perisacral pain fails to improve with the above, schedule a right sacroiliac joint injection. The risks of this procedure including pain, bleeding, infection, insomnia, hyperglycemia, hair loss, muscle atrophy, skin depigmentation, weight gain, fluid retention, adrenal suppression, immunosuppression, osteoporosis resulting in fractures, avascular necrosis of the hip, cataracts, bleeding gastric ulcer, worsening pain and failure to relieve pain were discussed and the patient is agreeable to proceeding at this time. 11/28/2024 Postlaminectomy syndrome, not elsewhere classified (ICD-10 - M96.1) 11/28/2024 Chronic pain syndrome (ICD-10 - G89.4) 11/28/2024 manager long term care (current) use of non-steroidal anti-inflammatories (NSAID) (ICD-10 - Z79.1) The patient was instructed to discontinue Advil for 4 days prior to any future epidural injections. PLAN OF TREATMENT Medication Medication Name Sig Start Date Stop Date Notes methylPREDNISolone 4 MG as directed Orally Treatment Notes Assessment Notes Lumbar radiculopathy I made the patient aware of his significant strength deficit in the right lower extremity. I emphasized that this is very concerning for a recurrent disc herniation. The patient's intermittent foot drop is also concerning. Given the patient's neurologic deficit an MRI lumbar spine is absolutely medically necessary. I also made the patient aware that he is potentially at risk for a permanent and progressive neurologic deficit without surgical decompression and he expressed an understanding of the above. The patient would like to try injection therapy prior to visiting with a neurosurgeon and he is willing to accept the above risks. Schedule a right L4-5 + L5-S1 (versus other level depending upon MRI results) transforaminal epidural steroid injection. The risks of this procedure including pain, bleeding, infection, spinal headache, persistent spinal fluid leak, epidural hematoma, nerve damage, spinal cord injury, paralysis, total spinal anesthesia resulting in cardiopulmonary arrest/, respiratory distress requiring intubation, insomnia, hyperglycemia, hair loss, muscle atrophy, skin depigmentation, weight gain, fluid retention, adrenal suppression, immunosuppression, osteoporosis resulting in fractures, avascular necrosis of the hip, cataracts, bleeding gastric ulcer, worsening pain and failure to relieve pain were discussed and the patient is agreeable to proceeding at this time. Sacroiliitis, not elsewhere classified I f the patient's lumbosacral and perisacral pain fails to improve with the above, schedule a right sacroiliac joint injection. The risks of this procedure including pain, bleeding, infection, insomnia, hyperglycemia, hair loss, muscle atrophy, skin depigmentation, weight gain, fluid retention, adrenal suppression, immunosuppression, osteoporosis resulting in fractures, avascular necrosis of the hip, cataracts, bleeding gastric ulcer, worsening pain and failure to relieve pain were discussed and the patient is agreeable to proceeding at this time. [facility] (current) use of n on-steroidal anti-inflammatories (NSAID) The patient was instructed to discontinu e Advil for 4 days prior to any future epidural injections. Pending Test Test Name Order Date X ray : Spines, lumbar complete 11/28/19 MRI : Lumbar Spine without contrast ([id number]) 11/28/2024 Next Appt Details Follow Up: Right L4-5 + L5-S 1 TFE (vs other level dep on MRI result), Reason: Progress Notes * Examination Category Sub-Category Detail Notes Category Not es Examination/ Pre-Anesthesia Assessment General: The patient is alert and oriented X 3 in moderate distress secondary to pain HEENT: Normocephalic, atrau matic. PERRL. The oropharynx is clear Neck: There is full range of motion of the cervical spine Heart: Regular rate and rhy thm Chest: Clear to auscultatio n bilaterally Abdomen: Soft and benign with normal bowel sounds throughout Musculoskeletal and Extremities: There i s tenderness to palpation over the bilateral L2-3 through L5-S1 facet joints. Extension and lateral rotation of the lumbar spine reproduces the patient's typical axial low back pain. Wesley's, Clearlake's and Gaenslen's are positive bilaterally. There is tenderness to palpation over the right sacroiliac joint and greater trochanter. There is tenderness to palpation over the bilateral lumbar paraspinal muscles Neurological: There is positive st raight leg raising on the right. There is 4 out of 5 strength at the right anterior tibialis and EHL. Otherwise, there are no focal strength deficits in the remainder of the right lower extremity and entire left lower extremity. There are no focal strength deficits in the bilateral upper extremities Skin: Clean, dry and intac t Psychiatric: Mood and affect are normal History and Physical Notes * HPI (History of Present Illness) Category Sub-Category Detail Notes Category Not es Pain Management Assessment and Follow-up: Follow -up Plan documented:: Yes [facility] Quality 2020: [facility] Documented:: Compliant
--- OUTSIDE RECORDS SUMMARY | 2025-05-16 13:08 | XMS_ITS | Patient Health Record ---
Author Organization [facility] Address [address] [place] [address] [place] [address] Care Team Providers Care Ore Sampler Name Role Phone [facility] Primary Care Provider Unavaila Barry Albert Unavailable [phone] ALLERGIES Allergen (clinical drug ingredient) Drug/Non Drug Allergy documented on EMR Reaction Allergy Type Onset Date Status Penicillin Unknown Drug Allergy Active REASON FOR REFERRAL No Information MEDICATIONS Medication SIG (Take, Route, Frequency, Duration) Notes Start Date End Date Status glipiZIDE ER 10 MG TAKE 2 TABLETS BY MOUTH ONCE DAILY Oral for 30 Active Sildenafil Citrate 100 MG 1 tablet Oral [...] methylPREDNISolone 4 MG as directed Orally Active SOCIAL HISTORY Tobacco Use: Social History Observation Description Date Details (start date - stop date) Never Smoker NA - NA Sex Assigned At : Social History Observation Description Sex Assigned At Unknown Tobacco Use/Smoking Question Answer Notes Are you a nonsmoker Section Notes: 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 He is with one child. The patient denies tobacco, alcohol, or illicit drug abuse. PROBLEMS Problem Type ICD Code Onset Dates Problem Status W/U Status Risk SNOMED Code Notes Problem Chronic pain syndrome (G89.4) Active confirmed Chronic sabiha n syndrome (479187388) Problem Sacroiliitis, not elsewhere classified (M46.1) Active confirmed Solitary sacroiliitis (184231146) Problem Intervertebral disc disorders with radiculopathy, lumbar region (M51.16) Active confirmed Radiculopathy d ue to lumbar intervertebral disc disorder (973289366246032) Problem Radiculopathy, lumbosacral region (M54.17) Active confirmed Lumbosacral radiculopathy (9037795) Problem Postlaminectomy syndrome, not elsewhere classified (M96.1) Active confirmed Post-lami nectomy syndrome (99154312) Problem [facility] (current) use of non-steroidal anti-inflammatorie s (NSAID) (Z79.1) Active confirmed watermaster current use of non-steroidal anti-inflammatory drug (135116886828818) Problem Lumbar radiculopathy (M54.16) Active confirmed Lumbar radiculopathy (310379925) VITAL SIGNS Heart Rate 65 /min 11/28/2024 Respiratory Rate 18 /min 11/28/2024 Blood pressure diastolic 109 mm Hg 11/28/2024 Height 6 ft 1 in in 11/28/2024 Blood pressure systolic 189 mm Hg 11/28/2024 Weight 230 lbs 11/28/2024 BMI 30.34 kg/m2 11/28/2024 Encounters Encounter Location Date Provider Diagnosis [facility] [address] [facility] [place] [address] 11/28/2024 Barry Gale Lumbar radiculopathy M54.16 ; Radiculopathy, lumbosacral region M54.17 ; Intervertebral disc disorders with radiculopathy, lumbar region M51.16 ; Sacroiliitis, not elsewhere classified M46.1 ; Postlaminectomy syndrome, not elsewhere classified M96.1 ; Chronic pain syndrome G89.4 and [facility] (current) use of non-steroidal anti-inflammatories (NSAID) Z79.1 ASSESSMENTS Encounter Date Diagnosis Assessment Notes Treatment Notes Treatment Clinical Notes Section Notes 11/28/2024 Radiculopathy, lumbosacral region (ICD-10 - M54.17) 11/28/2024 Lumbar radiculopathy (ICD-10 - M54.16) I [...] agreeable to proceeding at this time. 11/28/2024 Intervertebral disc disorders with radiculopathy, lumbar [...] Chronic pain syndrome (ICD-10 - G89.4) 11/28/2024 [facility] (current) use of non-steroidal anti-inflammatories (NSAID) (ICD-10 - Z79.1) The patient was instructed to discontinue Advil for 4 days prior to any future epidural injections. PLAN OF TREATMENT Pending Test Test Name Order Date X ray : Spines, lumbar complete 11/28/19 MRI : Lumbar Spine without contrast ([id number]) 11/28/2024 Insurance Providers Payer Name Payer Address Payer Phone Subscriber Number Group Number Insured Name Patient Relationship to Insured Coverage Start Date Coverage End Date [facility] [address] [address] [place] [address] [id number] MAJOR BAI Self - patient is the insured MEDICAL (GENERAL) HISTORY Medical History History ICD Code Diabetes type 2 Hypertension GERD Fatty liver Surgical History Surgery Date(Month/Year) Lumbar Discectomy 1994 Neck surgery 2004
== END 2025-05-16 13:01 | disposition home or self-care (01) ==
LOC: CHSIMG 13:05
PROVIDERS: PCP Nurse Practitioner Family; Visit Provider Nurse Practitioner Family
DX: J18.9 Pneumonia, unspecified organism (principal); K74.60 Unspecified cirrhosis of liver; K80.20 Calculus of gallbladder without cholecystitis without obstruction; N20.0 Calculus of kidney
CPT/HCPCS: 71250